=== PATIENT | female | born 1965 | race Caucasian/White ===

== ENCOUNTER 2024-06-11 11:55 | Inpatient (IN) | payer OTHER ==
[2024-06-11 13:13] LABS: HEMATOCRIT 41.3 % (34.3-46.0); HEMOGLOBIN 14.9 g/dL (11.2-15.5); MEAN CORPUSCULAR HEMOGLOBIN 32.4 pg (31.6-35.5); MEAN CORPUSCULAR HGB CONC 36.1 g/dL (31.6-35.5); MEAN CORPUSCULAR VOLUME 89.8 fL (81.4-99.0); PLATELET COUNT,PLT 61 K/uL (130-375); WHITE BLOOD CELL COUNT,WBC 1.2 K/uL (3.2-11.0)
[2024-06-11] MEDS: Ketorolac 15 MG/ML SDV IVPUSH ONE (13:35)
[2024-06-11 13:36] LABS: A/G RATIO 0.7 (1.2-2.2); ALANINE AMINOTRANSFERASE,ALT 290 U/L (12-78); ALBUMIN 2.8 g/dL (3.4-5.0); ALKALINE PHOSPHATASE 97 U/L (46-116); ASPARTATE AMNIOTRANSFERASE,AST 398 U/L (15-37); BILIRUBIN TOTAL 0.8 mg/dL (0.2-1.0); BLOOD UREA NITROGEN,BUN 37 mg/dL (7-18); CALCIUM 8.2 mg/dL (8.5-10.1); CARBON DIOXIDE,CO2 23 mmol/L (21-32); CHLORIDE,CL 94 mmol/L (100-108); EST CRCL DRUG DOSING (CG) 14.35 mL/min; ESTIMATED GFR 14 mL/min (>60); GLUCOSE RANDOM 99 mg/dL (74-106); POTASSIUM,K 3.5 mmol/L (3.6-5.2); PROTEIN TOTAL,TP 6.9 g/dL (6.4-8.2); SODIUM,NA 133 mmol/L (140-148)
[2024-06-11] MEDS: Sodium Chloride 0.9% 1,000 ML IV SCH ×3 (13:36→17:36)
[2024-06-11 13:42] LABS: ATYPICAL LYMPHOCYTES MODERATE; BAND ABSOLUTE MAN 0.18 K/uL; BAND PERCENT MAN 15 % (5-11); EOSINOPHILS ABSOLUTE MAN 0.02 K/uL (0.00-0.40); EOSINOPHILS PERCENT MAN 2 % (2-4); LYMPHOCYTES ABSOLUTE MAN 0.36 K/uL (0.8-3.3); LYMPHOCYTES PERCENT MAN 30 % (24-44); METAMYELOCYTE ABSOLUTE MAN 0.04 K/uL; METAMYELOCYTE PERCENT MAN 3 %; MONOCYTES ABSOLUTE MAN 0.14 K/uL (0.20-0.90); MONOCYTES PERCENT MAN 12 % (2-6); NEUTROPHILS ABSOLUTE MAN 0.46 K/uL (1.0-7.6); SEG NEUTROPHILS PERCENT MAN 38 % (36-66)
[2024-06-11 13:43] LABS: ANION GAP 19.5 mmol/L (5.0-14.0); CREATININE 3.6 mg/dL (0.6-1.0)
[2024-06-11] MEDS: HYDROmorphone 0.5 MG/0.5 ML Syringe IVPUSH ONE (14:08)
[2024-06-11 14:38] LABS: APPEARANCE,URINE CLOUDY (CLEAR); BILIRUBIN,URINE SMALL (NEGATIVE); COLOR,URINE YELLOW (YELLOW); GLUCOSE,URINE 100 mg/dL (NEGATIVE); KETONES,URINE NEGATIVE (NEGATIVE); LEUKOCYTE ESTERASE,URINE NEGATIVE (NEGATIVE); NITRITE,URINE NEGATIVE (NEGATIVE); OCCULT BLOOD,URINE MODERATE (NEGATIVE); PH,URINE 5.5 (5.0-8.0); PROTEIN,URINE >=300 mg/dL (NEGATIVE); UROBILINOGEN,URINE 0.2 EU/dL (0.2-1.0)
[2024-06-11 14:56] LABS: BACTERIA,URINE MODERATE; EPITHELIAL CELLS,URINE MODERATE; MUCUS,URINE NOT SEEN; RBC,URINE 0-5 (0-5)
[2024-06-11 14:57] LABS: AMORPHOUS SEDIMENT,URINE MODERATE
[2024-06-11] MEDS ORDERED: HYDROmorphone 0.5 MG/0.5 ML Syringe IVPUSH PRN (14:59)
[2024-06-11] MEDS: cefTRIAXone 2 GM in Sodium Chloride 0.9% 50 ML IV SCH (15:29)
[2024-06-11] MEDS ORDERED: Sennosides/Docusate Sodium 50-8.6 MG Tab PO PRN (15:34)
[2024-06-11] MEDS ORDERED: Magnesium Hydroxide 400 MG/5 ML Susp 30 ML Cup PO PRN (15:34)
[2024-06-11] MEDS ORDERED: Ondansetron 4 MG Tab.DIS PO PRN (15:34)
[2024-06-11] MEDS: Albuterol 0.083% 2.5 MG/3 ML Neb Soln NEB PRN (16:51)
[2024-06-11] MEDS: Doxycycline 100 MG in Sodium Chloride 0.9% 100 ML IV SCH (17:30)
[2024-06-11] MEDS: oxyCODONE 5 MG Tab PO PRN (17:54)
[2024-06-11] MEDS: Potassium Chloride 20 MEQ Tab.ER PO ONE (18:07)
[2024-06-11] MEDS: Potassium Chloride 20 MEQ Tab.ER ONE (18:45)
[2024-06-11] MEDS: Morphine 2 MG/ML SYRINGE IVPUSH PRN (19:10)
[2024-06-11] MEDS: Ondansetron 4 MG/2 ML SDV IV PRN (19:18)
[2024-06-11] MEDS: Sodium Chloride 0.9% 1,000 ML IV ONE ×2 (19:32→23:40)
[2024-06-11] MEDS: Lactobacillus Rhamnosus GG (Probiotic) Cap PO SCH (21:12)
[2024-06-11] MEDS: guaiFENesin/Dextromethorphan 100-10 MG/5 ML Soln 10 ML Cup PO PRN (21:51)
[2024-06-11] MEDS: Benzonatate 100 MG Cap PO PRN (23:36)
[2024-06-11] MEDS: Acetaminophen 325 MG Tab PO PRN (23:36)
[2024-06-12] MEDS ORDERED: Albuterol/Ipratropium 3.0-0.5 MG/3 ML Neb Soln NEB PRN (02:38)
[2024-06-12 04:05] LABS: HEMATOCRIT 35.9 % (34.3-46.0); HEMOGLOBIN 12.6 g/dL (11.2-15.5); MEAN CORPUSCULAR HEMOGLOBIN 32.4 pg (31.6-35.5); MEAN CORPUSCULAR HGB CONC 35.1 g/dL (31.6-35.5); MEAN CORPUSCULAR VOLUME 92.3 fL (81.4-99.0); RED BLOOD CELL COUNT 3.89 M/uL (3.77-5.24)
[2024-06-12 04:20] LABS: CALCIUM 7.1 mg/dL (8.5-10.1); EST CRCL DRUG DOSING (CG) 13.96 mL/min; POTASSIUM,K 3.4 mmol/L (3.6-5.2)
[2024-06-12 04:32] LABS: ANION GAP 19.4 mmol/L (5.0-14.0); CREATININE 3.7 mg/dL (0.6-1.0)
[2024-06-12] MEDS: Albuterol/Ipratropium 3.0-0.5 MG/3 ML Neb Soln NEB SCH (06:54)
[2024-06-12 08:37] LABS: A/G RATIO 0.5 (1.2-2.2); ALBUMIN 1.9 g/dL (3.4-5.0); BILIRUBIN DIRECT 1.08 mg/dL (0.0-0.2); BILIRUBIN INDIRECT 0.22; BILIRUBIN TOTAL 1.3 mg/dL (0.2-1.0); PROTEIN TOTAL,TP 5.4 g/dL (6.4-8.2)
[2024-06-12] MEDS: Cefepime 2 GM in Sodium Chloride 0.9% 50 ML IV SCH (08:46)
[2024-06-12] MEDS: Potassium Chloride 10 MEQ in Premix Bag 1 BAG IV SCH (08:49)
[2024-06-12] MEDS ORDERED: Cefepime 2 GM in Sodium Chloride 0.9% 50 ML IV SCH (09:00)
[2024-06-12] MEDS ORDERED: Benzocaine/Cetylpyridinium/Menthol Lozenge MUCMEM PRN (09:42)
[2024-06-12] MEDS: Sodium Chloride 0.9% 1,000 ML IV SCH (10:46)
[2024-06-12] MEDS: Albuterol 0.083% 2.5 MG/3 ML Neb Soln NEB SCH (10:50)
[2024-06-12] MEDS: LORazepam 0.5 MG Tab PO PRN (23:47)
[2024-06-13 05:12] LABS: HEMATOCRIT 32.6 % (34.3-46.0); HEMOGLOBIN 11.7 g/dL (11.2-15.5); MEAN CORPUSCULAR HEMOGLOBIN 32.8 pg (31.6-35.5); MEAN CORPUSCULAR HGB CONC 35.9 g/dL (31.6-35.5); MEAN CORPUSCULAR VOLUME 91.3 fL (81.4-99.0); PLATELET COUNT,PLT 50 K/uL (130-375); RED BLOOD CELL COUNT 3.57 M/uL (3.77-5.24); WHITE BLOOD CELL COUNT,WBC 1.8 K/uL (3.2-11.0)
[2024-06-13 05:46] LABS: A/G RATIO 0.5 (1.2-2.2); ALANINE AMINOTRANSFERASE,ALT 105 U/L (12-78); ALBUMIN 1.8 g/dL (3.4-5.0); ALKALINE PHOSPHATASE 64 U/L (46-116); ASPARTATE AMNIOTRANSFERASE,AST 168 U/L (15-37); BILIRUBIN TOTAL 1.8 mg/dL (0.2-1.0); BLOOD UREA NITROGEN,BUN 54 mg/dL (7-18); C-REACTIVE PROTEIN 23.86 mg/dL (<0.50); CALCIUM 7.6 mg/dL (8.5-10.1); CARBON DIOXIDE,CO2 18 mmol/L (21-32); CHLORIDE,CL 107 mmol/L (100-108); CREATINE KINASE,CK 178 U/L (26-192); CREATININE 3.2 mg/dL (0.6-1.0); EST CRCL DRUG DOSING (CG) 16.14 mL/min; ESTIMATED GFR 16 mL/min (>60); GLUCOSE RANDOM 80 mg/dL (74-106); POTASSIUM,K 4.4 mmol/L (3.6-5.2); PROTEIN TOTAL,TP 5.5 g/dL (6.4-8.2); SODIUM,NA 138 mmol/L (140-148)
[2024-06-13 05:56] LABS: ANION GAP 17.4 mmol/L (5.0-14.0)
[2024-06-13 06:09] LABS: BAND ABSOLUTE MAN 0.14 K/uL; BAND PERCENT MAN 8 % (5-11); LYMPHOCYTES ABSOLUTE MAN 0.07 K/uL (0.8-3.3); LYMPHOCYTES PERCENT MAN 4 % (24-44); MONOCYTES ABSOLUTE MAN 0.07 K/uL (0.20-0.90); MONOCYTES PERCENT MAN 4 % (2-6); NEUTROPHILS ABSOLUTE MAN 1.51 K/uL (1.0-7.6); SEG NEUTROPHILS PERCENT MAN 84 % (36-66)
[2024-06-13] MEDS: Oseltamivir 30 MG Cap PO SCH (09:08)
[2024-06-13] MEDS ORDERED: Piperacillin/Tazobactam 4.5 GM in Sodium Chloride 0.9% 100 ML IV ONE (10:30)
[2024-06-13 10:53] LABS: BASE EXCESS ARTERIAL -9.7 mm/L; BICARBONATE,ARTERIAL 13.6 mmol/L (22.0-26.0); CARBOXYHEMOGLOBIN 1.9 % (0.0-1.6); METHEMOGLOBIN 0.8 %; O2 SATURATION ARTERIAL 93.7 % (95.0-98.0); OXYHEMOGLOBIN 91.2 %; PCO2 ARTERIAL 23.4 mmHg (35.0-42.0); TOTAL HEMOGLOBIN 11.8 g/dL (12.0-16.0)
[2024-06-13] MEDS: Piperacillin/Tazobactam/Dext 4.5 GM in Premix Bag 1 BAG IV ONE (10:56)
[2024-06-13] MEDS: Levofloxacin/Dextrose 5%-Water 750 MG in Premix Bag 1 BAG IV ONE (11:35)
[2024-06-13] MEDS: LORazepam 2 MG/ML SDV IVPUSH ONE ×2 (11:40→14:25)
[2024-06-13 11:44] LABS: CORONAVIRUS COVID-19 NAA NEGATIVE (NEGATIVE); INFLUENZA A NAA POSITIVE (NEGATIVE); INFLUENZA B NAA NEGATIVE (NEGATIVE); RESPIRATORY SYNCYTIAL VIR NAA NEGATIVE (NEGATIVE)
[2024-06-13] MEDS: Morphine 2 MG/ML SYRINGE IVPUSH ONE (14:07)
[2024-06-13] MEDS: LORazepam 2 MG/ML SDV ONE (14:29)
[2024-06-13] MEDS ORDERED: Propofol 200 MG/20 ML SDV ONE (15:56)
[2024-06-13] MEDS ORDERED: Succinylcholine 200 MG/10 ML MDV ONE (15:56)
[2024-06-13] MEDS: propofoL 1,000 MG/100 ML 100 ML IV SCH (16:20)
[2024-06-13 16:45] LABS: BASE EXCESS ARTERIAL -10.8 mm/L; CARBOXYHEMOGLOBIN 0.7 % (0.0-1.6); METHEMOGLOBIN 0.6 %; O2 SATURATION ARTERIAL 82.8 % (95.0-98.0); OXYHEMOGLOBIN 81.7 %; PCO2 ARTERIAL 40.1 mmHg (35.0-42.0); PO2 ARTERIAL 56.3 mmHg (75.0-100.0); TOTAL HEMOGLOBIN 12.5 g/dL (12.0-16.0)
[2024-06-13] MEDS: Piperacillin/Tazobactam/Dext 4.5 GM in Premix Bag 1 BAG IV SCH (17:40)
[2024-06-13] MEDS ORDERED: Piperacillin/Tazobactam/Dext 4.5 GM in Premix Bag 1 BAG IV SCH (23:00)
[2024-06-15] MEDS ORDERED: Levofloxacin/Dextrose 5%-Water 500 MG in Premix Bag 1 BAG IV SCH (12:00)
== END 2024-06-13 18:00 | DRG 871 ==
LOC: JP.ED 11:55 → JP.MS 15:01 → JP.ICU 06-13 10:24
PROVIDERS: ADMIT Internal Medicine; ATTEND Hospitalist
PROC: 3E03329 Introduction of Other Anti-infective into Peripheral Vein, Percutaneous Approach (ICD-10-PCS; 2024-06-11)
PROC: 4A133R1 Monitoring of Arterial Saturation, Peripheral, Percutaneous Approach (ICD-10-PCS; principal; 2024-06-13)
PROC: 5A1935Z Respiratory Ventilation, Less than 24 Consecutive Hours (ICD-10-PCS; 2024-06-13)
PROC: 0BH17EZ Insertion of Endotracheal Airway into Trachea, Via Natural or Artificial Opening (ICD-10-PCS; 2024-06-13)
DX: A41.89 Other specified sepsis (principal); J10.08 Influenza due to other identified influenza virus with other specified pneumonia; J80 Acute respiratory distress syndrome; J15.9 Unspecified bacterial pneumonia; N17.9 Acute kidney failure, unspecified; M62.82 Rhabdomyolysis; E87.29 Other acidosis; R65.20 Severe sepsis without septic shock; E86.0 Dehydration; D72.819 Decreased white blood cell count, unspecified; E87.6 Hypokalemia; Z79.899 Other long term (current) drug therapy; Z98.51 Tubal ligation status
CPT/HCPCS: 0241U; 31500; 36415; 36600; 71045; 71045-26; 80048; 80053; 80076; 81001; 82550; 82803; 83605; 85025; 85027; 85379; 86140; 86308; 87040; 87428-QW; 94002; 94640; 94660; 94667; 99223; 99233; 99239; A9270-GY; J0330; J0692; J0696; J1885; J1956; J2060; J2270; J2405; J2543; J2704; J3480; J3490; J7620